=== PATIENT | male | born 1950 | race Caucasian/White ===

== ENCOUNTER 2019-06-21 07:01 | Day surgery (SDC) | payer MEDICARE, SELFPAY ==
[2019-06-21] VITALS (8 sets, daily range): BP systolic 127–143; BP diastolic 83–94; PULSE 68–78; RESP 16; TEMP 36.4–36.6; O2SAT 94–99; BMI 33.0
[2019-06-21] MEDS: Lactated Ringers 1,000 ML 100 ML IV ×2 (07:54→10:15)
[2019-06-21] MEDS: Ciprofloxacin 400 MG/200 ML BAG 200 MG IV (07:55)
--- NOTE | 2019-06-21 08:34 | DCINST_ITS ---
Discharge Diet: Light diet - advance as tolerated Discharge Activity: Return to Normal Activity Call your doctor if your incision/area has: Continuous Slow Oozing Call your doctor if you observe: Fever of 101 or Higher Suture Line Care: Avoid Pulling/Pushing, Avoid Pinching/Bending Allergies/Adverse Reactions: Allergies Penicillins Allergy (Verified 06/18/19 09:13) Anaphylaxis codeine Adverse Reaction (Verified 06/18/19 09:13) Vomiting erythromycin base Adverse Reaction (Verified 06/18/19 09:13) Vomiting Medications to take at Discharge Alfuzosin HCl [Uroxatral] 10 mg PO DAILY 06/07/19 Fluticasone 0.05% [Flonase Nasal [employer]] 2 spray NASAL DAILY 06/07/19 Cyanocobalamin (Vitamin B-12) [Vitamin B-12] 1,000 mcg PO DAILY 06/18/19 Ibuprofen [Advil] 200 mg PO PRN PRN 06/18/19 Primary Care Physician: Larry Jackson MD [Primary Care Provider] - Test Results: Test results from this visit will be discussed in further detail at your follow- up appointment, if applicable. Please Follow Up With: Johnathon Morales MD
--- NOTE | 2019-06-21 09:07 | OP.PCM_ITS ---
Report of Operation Date of Procedure: 06/21/19 Pre-Operative Diagnosis: Prostate cancer Post-Operative Diagnosis: Same Surgery/Procedure Performed:: Transrectal ultrasound of the prostate, transrectal ultrasound guidance and placement of gold markers, transrectal ultrasound guidance of placement of spacer organ at risk hydrogel. Description of Surgical Findings:: 68-year-old male who is elected to undergo radiation treatment for his prostate cancer today with proceed with placement of the gold fiducial markers for prostate cancer and were also in the space the rectum off the prostate with a spacer hydrogel. 68-year-old male taken back to the operating room after smooth induction of anesthesia he was placed in dorsolithotomy position the legs up in stirrups, he was prepped and draped in usual sterile fashion using Ioban to hold up the testicles out of the perineum I then placed an ultrasound probe into the rectum using the biplanar ultrasound probe we performed ultrasonography of the prostate could see the prostate on sagittal view and transverse view identified the landmarks the the fascia below the prostate and the seminal vesicles the prostate itself the apex of the prostate was identified the sphincter complex. I then used the first lumber marker under visualization I guided it to the right base of the prostate and and deployed the marker I then went to the left base of the prostate under ultrasound guidance and deployed the chino on the left side coming to the perineum and finally through the perineum I placed a third marker at the left apex after the 3 markers were placed in the prostate via perineal access and then I used the ultrasound to identify a my landmarks my fascia below the prostate and the space between the rectum and the fascia I did compare the hydrogel in the back table per computer aided design drafter's instructions I then used a needle to guided into the space below the prostate below deny obvious fascia above the rectum once I was in the fascial space then I injected a puff of normal saline could see the space develop and then I injected the hydrogel below the rectum over a course of 14 seconds this created a nice separation between the rectum and the prostate from the base of the apex. After the spacer had been injected then we pulled out the needle patient anesthetic was reversed to take back to PACU good condition. Type of Anesthesia:: General Estimated Blood Loss (mL): none - Admit VTE Documentation VTE Present on Admission: No VTE Mechan Device Prophylaxis: SCD's
== END 2019-06-21 10:40 | disposition home or self-care (01) ==
LOC: SDC 07:02 → AC 07:03
PROVIDERS: Family Provider Family Medicine; PCP Family Medicine; Referring Provider Urology; Visit Provider Urology
PROC: (CPT 55874; principal; 2019-06-21 08:30)
DX: C61 Malignant neoplasm of prostate (principal); E11.9 Type 2 diabetes mellitus without complications; M19.91 Primary osteoarthritis, unspecified site; K21.9 Gastro-esophageal reflux disease without esophagitis; Z87.891 Personal history of nicotine dependence; Z79.899 Other long term (current) drug therapy
CPT/HCPCS: 55874; 55876; 76942; J7120; J0744

== ENCOUNTER → 2019-06-28 | Outpatient (CLI) | payer MEDICARE, SELFPAY ==
[2019-06-21 07:36] VITALS: BMI 33.0
--- NOTE | 2019-06-28 13:49 | MRI_ITS ---
STUDY: MR PELVIS WITHOUT CONTRAST REASON FOR EXAM: Male, 68 years old. Prostate cancer, evaluate for bony metastasis. TECHNIQUE: Standardized fat and water weighted pulse sequences were obtained in all 3 orthogonal planes. COMPARISON: None. FINDINGS: Normal urinary bladder. Normal visualized small intestine. There are multiple colonic diverticula of the sigmoid colon consistent with chronic diverticulosis. There is no pelvic fluid. There is no pelvic mass lesion or lymphadenopathy. Normal visualized pelvic arteries. Normal osseous structures. There is a right inguinal hernia containing fat. MRI/Pelvis (Routine) IMPRESSION: No MR evidence of metastatic disease. Electronically Signed: Buddy Hdz MD at 8:40 EDT Tel , Service support ,
== END | disposition home or self-care (01) ==
PROVIDERS: Family Provider Family Medicine; PCP Family Medicine; Referring Provider Student in an Organized Health Care Education/Training Program; Visit Provider Student in an Organized Health Care Education/Training Program
DX: C61 Malignant neoplasm of prostate (principal)
CPT/HCPCS: 72195